=== PATIENT | female | born 1975 | race African-American/Black ===

== ENCOUNTER 2021-01-01 11:59 | Emergency (ER) | payer MEDICAID ==
[~2021-01-01] VITALS: Ht 152.4 cm; Wt 68.0 kg
[2021-01-01] MEDS ORDERED: IBUPROFEN 600MG TABLET PO ONE (15:15)
[2021-01-01 16:47] VITALS: BP 143/77
== END 2021-01-01 16:55 | disposition home or self-care (01) ==
LOC: ER 11:59
DX: M25.532 Pain in left wrist (principal); Z91.013 Allergy to seafood; Z91.041 Radiographic dye allergy status
CPT/HCPCS: 93971; 99284